=== PATIENT | male | born 1960 | race Caucasian/White ===

== ENCOUNTER 2019-04-24 01:39 | Emergency (ER) | payer MEDICAID, OTHER ==
[~2019-04-24] VITALS: Ht 160 cm; Wt 75.0 kg
[2019-04-24] MEDS ORDERED: HYDROcodone/acetaminophen 5mg/325mg tablet PO ONE (02:25)
[2019-04-24] MEDS ORDERED: ondansetron 4mg rapidly disintigrating tab PO ONE (02:25)
[2019-04-24 02:46] LABS: BASOPHILS # (AUTO) 0.1 X10'3 (0-0.2); BASOPHILS % (AUTO) 0.8 % (0-1); EOSINOPHILS # (AUTO) 1.6 X10'3 (0-0.9); EOSINOPHILS % (AUTO) 14.3 % (0-6); LYMPHOCYTES # (AUTO) 1.5 X10'3 (1.1-4.8); LYMPHOCYTES % (AUTO) 13.4 % (21-51); MEAN CORPUSCULAR HEMOGLOBIN 32.8 PG (27.0-31.0); MEAN CORPUSCULAR HGB CONC 34.2 g/dL (33.0-36.5); MEAN CORPUSCULAR VOLUME 96.1 FL (78-98); MEAN PLATELET VOLUME 7.2 FL (7.4-10.4); MONOCYTES # (AUTO) 1.5 X10'3 (0-0.9); MONOCYTES % (AUTO) 12.8 % (2-12); NEUTROPHILS # (AUTO) 6.6 X10'3 (1.8-7.7); NEUTROPHILS % (AUTO) 58.7 % (42-75); PLATELET COUNT 366 X10'3 (140-440); RED BLOOD COUNT 4.57 X10'6 (4.70-6.10); RED CELL DISTRIBUTION WIDTH 13.5 % (11.5-14.5); WHITE BLOOD COUNT 11.3 X10'3 (4.5-11.0)
[2019-04-24 03:00] LABS: ALANINE AMINOTRANSFERASE 28 U/L (12-78); ALBUMIN 3.4 G/DL (3.4-5.0); ALBUMIN/GLOBULIN RATIO 0.7 (1.1-1.5); ALKALINE PHOSPHATASE 89 IU/L (46-116); ANION GAP 10 (8-16); ASPARTATE AMINO TRANSFERASE 16 U/L (10-37); BILIRUBIN,TOTAL 0.5 MG/DL (0.1-1.0); BLOOD UREA NITROGEN 15 MG/DL (7-18); BUN/CREATININE RATIO 15.5 (5.4-32.0); CALCIUM 9.2 MG/DL (8.5-10.1); CHLORIDE 103 MMOL/L (99-107); CREATININE 0.97 MG/DL (0.60-1.10); GLUCOSE 119 MG/DL (70-104); LIPASE 78 U/L (73-393); POTASSIUM 3.8 MMOL/L (3.5-5.1); SODIUM 138 MMOL/L (135-145); TOTAL CARBON DIOXIDE 25.2 MMOL/L (24-32); eGFR 79 ML/MIN
--- NOTE | 2019-04-24 03:04 | NUR ---
labs drawn, urine provided, pt just returned from ct. pt is a&ox4 and cooperative. pain is 7 out of 10 to abdomen
--- NOTE | 2019-04-24 03:42 | NUR ---
pt returned from CT, pain level reassesses, states 01/12. CT results pending. vitals stable. pt resting comfortably.
[2019-04-24 03:45] LABS: CLARITY,URINE CLEAR (Clear); COLOR,URINE YELLOW (Yellow); GLUCOSE, URINE NEGATIVE (Neg); KETONES,URINE NEGATIVE (Neg); LEUKOCYTE ESTERASE ,URINE NEGATIVE (Neg); NITRITES, URINE NEGATIVE (Neg); OCCULT BLOOD,URINE LARGE (Neg); PROTEIN,URINE NEGATIVE (Neg)
[2019-04-24 03:59] LABS: UA COLLECTION TYPE CLN CATCH MIDSTREAM
[2019-04-24 04:03] LABS: BACTERIA,URINE NONE SEEN /HPF (Neg); RBC,URINE 20-50 /HPF (0-2); SQUAMOUS EPITHELIAL CELL,UR FEW /LPF (FEW); WBC,URINE NONE SEEN /HPF (0-4)
[2019-04-24] MEDS ORDERED: ketorolac trometh. 30mg/ml inj. IV ONE (04:25)
[2019-04-24] MEDS ORDERED: ketorolac trometh inj. 60 MG/2 ML VIAL IM ONE (04:55)
--- NOTE | 2019-04-24 05:35 | NUR ---
pt placed on o2 2L nc stats ranging 88-91%. vss. pt just given toradal IM. reports 2/10 pain. friend is at bedside.
[2019-04-24] MEDS ORDERED: IBUP-1985 PO (08:07)
[2019-04-24] MEDS ORDERED: HYDR-3965 PO (08:07)
[2019-04-24 08:21] VITALS: BP 143/93
== END 2019-04-24 08:24 | disposition home or self-care (01) ==
LOC: ER 01:40
DX: N20.1 Calculus of ureter (principal); R10.32 Left lower quadrant pain
CPT/HCPCS: 36415; 74176; 80053; 81001; 83605; 83690; 85025; 85610; 96372; 99284; J1885

== ENCOUNTER 2025-05-04 09:59 | Emergency (ER) | payer MEDICAID ==
[~2025-05-04] VITALS: Ht 160 cm; Wt 59.1 kg
[~2025-05-04 09:59] MED LIST: BICT1TAB PO; CARV-164 PO; CEPH-585 PO; DICL100G59 TOP; EMPA10TA PO; FURO-149 PO; LOSA25TA41 PO
--- NOTE | 2025-05-04 10:10 | ELECTROCARDIOGRAPH REPORT ---
[facility] Test Date: 2025-05-04 Test Time: 10:02:52 Pat Name: NATHANAEL COBB Department: EMERGENCY ROOM Room: Gender: M [employer]: PM : 1960 Requested By: JERRY MCGEE Order Number: [id number] Reading MD: Dr. Ángel Monzon Measurements Intervals [place] Rate: 107 P: 65 UT: 175 QRS: 119 QRSD: 103 T: -25 QT: 348 QTc: 465 Interpretive Statements Sinus tachycardia Atrial premature complex Right axis deviation Probable anteroseptal infarct, old Borderline T abnormalities, inferior leads Electronically Signed On 05-05-2025 10:24:[address] Ángel Monzon Please click the below link to view image of tracing.
[2025-05-04 10:25] LABS: BASOPHILS % (AUTO) 0.5 % (0-1); EOSINOPHILS # (AUTO) 0.1 X10'3 (0-0.9); EOSINOPHILS % (AUTO) 1.4 % (0-6); HEMATOCRIT 48.1 % (42.0-52.0); HEMOGLOBIN 15.8 g/dl (14.0-17.9); LYMPHOCYTES % (AUTO) 23.5 % (21-51); MEAN CORPUSCULAR HEMOGLOBIN 31.5 PG (27.0-31.0); MEAN CORPUSCULAR HGB CONC 32.9 g/dL (33.0-36.5); MEAN CORPUSCULAR VOLUME 95.9 FL (78-98); MEAN PLATELET VOLUME 7.8 FL (7.4-10.4); MONOCYTES # (AUTO) 0.9 X10'3 (0-0.9); MONOCYTES % (AUTO) 10.4 % (2-12); NEUTROPHILS # (AUTO) 5.6 X10'3 (1.8-7.7); NEUTROPHILS % (AUTO) 64.2 % (42-75); PLATELET COUNT 236 X10'3 (140-440); RED BLOOD COUNT 5.01 X10'6 (4.70-6.10); RED CELL DISTRIBUTION WIDTH 18.6 % (11.5-14.5); WHITE BLOOD COUNT 8.7 X10'3 (4.5-11.0)
[2025-05-04] MEDS: magnesium sulf-water 2g/50mL 50 ML IV ONE (10:32)
[2025-05-04] MEDS: normal saline 1000ML IV soln IVB ONE (10:33)
[2025-05-04 10:43] LABS: ALANINE AMINOTRANSFERASE 34 U/L (12-78); ALBUMIN 3.4 G/DL (3.4-5.0); ALBUMIN/GLOBULIN RATIO 0.8 (1.1-1.5); ALKALINE PHOSPHATASE 128 IU/L (46-116); ANION GAP 19 (8-16); ANISOCYTOSIS 2+; ASPARTATE AMINO TRANSFERASE 35 U/L (10-37); BILIRUBIN,TOTAL 2.7 MG/DL (0.1-1.0); BLOOD UREA NITROGEN 50 MG/DL (7-18); BUN/CREATININE RATIO 29.1 (10.0-20.0); CALCIUM 9.1 MG/DL (8.5-10.1); CHLORIDE 101 MMOL/L (99-107); CREATININE 1.72 MG/DL (0.60-1.10); GLUCOSE 172 MG/DL (70-104); MAGNESIUM 2.2 MG/DL (1.5-2.4); PLATELET ESTIMATE NORMAL; SODIUM 136 MMOL/L (135-145); TOTAL CARBON DIOXIDE 16.5 MMOL/L (24-32); TOTAL PROTEIN 7.8 G/DL (6.4-8.2); eCRCL 35 ML/MIN; eGFR 40 ML/MIN
--- NOTE | 2025-05-04 10:46 | Physician Documentation ---
History of Present Illness ~ Chief Complaint: Chest Pain Stated Complaint: SVT Time Seen by MD: 10:01 Primary Medical Doctor: AGAPITO Mode of Arrival: EMS HPI This is a 64-year-old gentleman who was brought in by ambulance for evaluation of chest pain no shortness a breath. He was found to be in supraventricular tachycardia with a rate of 177. In route he received adenosine 6 mg and then 12 mg converting into spontaneous sinus rhythm. His chest pain and shortness a breath have resolved. No particular palliating or aggravating factors, no trigger was elicited with the patient. States that he does not have past history of supraventricular tachycardia, this never happened in the past. A denies drug use and states that he has been clean off meth for two years. Medication Reconciliation Allergies: Coded Allergies: No Known Allergies (Unverified , 04/22/21) Scheduled Bictegrav/Emtricit/Tenofov Ala (Biktarvy 50-200-25 mg Tablet), 1 TAB PO DAILY, (Reported) Carvedilol (Carvedilol), 3.125 MG PO BID Cephalexin*Monohydrate* (Keflex*), 500 MG PO TID Empagliflozin (Jardiance), 10 MG PO DAILY Furosemide (Lasix), 40 MG PO DAILY Losartan Potassium (Losartan Potassium), 25 MG PO DAILY Scheduled PRN Diclofenac Sodium (Diclofenac Sodium), 1 APPLIC TOP for pain, (Reported) Past Medical History Past Medical History: Constipation, Hernia, Kidney Stones Past Surgical History: noncontributory Alcohol Use: Abuse Drug Use: marijuana, methamphetamine Lives with: Other Lives In: Home Review of Systems ROS 10 point review of systems was performed and unless noted above in HPI is negative for acute process/complaint. Physical Exam Vital Signs: Temperature: 98.5, Source: Oral, Heart Rate: 106, Respiratory Rate: 23, BP: 114/84, Pulse Oximetry: 96, Weight: 59.090 Physical Exam GENERAL: Awake, alert, oriented, GCS 15, no apparent distress, non-toxic appearing, answers questions, follows commands appropriately. HEENT: Atraumatic, normocephalic, pupils equal, extraocular muscles intact, sclerae anicteric, mucus membranes moist, oropharynx is clear, no stridor. NECK: supple, full active range of motion, trachea midline, no thyromegaly, no lymphadenopathy, no JVD. CARDIOVASCULAR: regular rate/rhythm, no murmurs/gallops/rubs, Pulses are 2+ in all extremities and symmetric. Capillary refill less than 2 seconds. PULMONARY: Nonlabored, good air movement ,no respiratory distress, speaking in full sentences, clear to auscultation bilaterally, no wheezing, no ronchi, no rales, no accessory muscle use. GASTROINTESTINAL: Soft, non-tender, non-distended, normal active bowel sounds, no organomegaly, no pulsatile masses, no CVA tenderness. NEUROLOGIC: Lucid with normal mental status. Normal facial symmetry. Moves all extremities symmetrically and with purpose. No truncal ataxia. Speech is fluid without evidence of dysarthria or aphasia, no focal deficits appreciated. MUSCULOSKELETAL: There is full range of motion of all extremities. There is no joint pain or joint swelling or joint erythema. There is no muscle pain or tenderness or swelling. EXTREMITIES: warm, well-perfused, no cyanosis, no clubbing, no edema, no acute deformities. Skin: warm, dry, no rashes or lesions, no jaundice, no petechiae orpurpura. No ecchymosis. PSYCHIATRIC: Anxious affect, normal insight, normal concentration. Focused exam: [] Progress Results/Orders Results/Orders Orders - JERRY MCGEE DO Chest,Single View (05/04/25 10:06) Monitor (05/04/25 10:06) Saline Lock (05/04/25 10:06) Hs Troponin I W Calculations (05/04/25 13:06) Completed Orders - JERRY MCGEE DO Electrocardiogram (05/04/25 10:06) Cbc/Diff (05/04/25 10:06) Chest,Single View (05/04/25 10:06) MG (05/04/25 10:06) Normal Saline 1000ml (Sodium Chloride 10 (05/04/25 10:10) CMP (05/04/25 10:06) Hs Troponin I W Calculations (05/04/25 10:06) Hs Troponin I W Calculations (05/04/25 12:06) Magnesium Sulf-Water 2g/50ml (Magnesium (05/04/25 10:10) Medications Received in ER Medications (Trade) Dose Ordered Sig/Jolanta Route PRN Reason Start Time Stop Time Status Last Admin Dose Admin (sodium chloride 1000ml IV soln) 500 ml ONCE ONCE IVB 05/04/25 10:10 05/04/25 11:23 DC 05/04/25 10:33 500 ML Magnesium Sulfate 50 ml @ 100 mls/hr ONCE ONCE IV 05/04/25 10:10 05/04/25 11:23 DC 05/04/25 10:32 100 MLS/HR Vital Signs 05/04/25 05/04/25 05/04/25 05/04/25 10:03 10:13 10:15 11:46 Temp 98.5 98.5 98.5 Pulse 97 106 75 Resp 18 18 23 18 B/P (MAP) 114/85 114/84 (94) 94/69 (77) Pulse Ox 97 96 94 O2 Flow Rate 4.0 05/04/25 05/04/25 13:28 14:36 Temp 98.5 98.5 Pulse 85 82 Resp 18 15 B/P (MAP) 96/67 (77) 90/67 (75) Pulse Ox 97 96 O2 Flow Rate 4.0 4.0 Laboratory Tests Test 05/04/25 10:15 05/04/25 12:38 White Blood Count 8.7 Red Blood Count 5.01 Hemoglobin 15.8 Hematocrit 48.1 Mean Corpuscular Volume 95.9 Mean Corpuscular Hemoglobin 31.5 H Mean Corpuscular Hemoglobin Concent 32.9 L Red Cell Distribution Width 18.6 H Platelet Count 236 Mean Platelet Volume 7.8 Neutrophils (%) (Auto) 64.2 Lymphocytes (%) (Auto) 23.5 Monocytes (%) (Auto) 10.4 Eosinophils (%) (Auto) 1.4 Basophils (%) (Auto) 0.5 Neutrophils # (Auto) 5.6 Lymphocytes # (Auto) 2.0 Monocytes # (Auto) 0.9 Eosinophils # (Auto) 0.1 Basophils # (Auto) 0.0 CBC Comment Platelet Estimate Normal Red Blood Cell Morphology Perf Basophilic Stippling Anisocytosis 2+ Macrocytosis 1+ Sodium Level 136 Potassium Level 4.0 Chloride Level 101 Carbon Dioxide Level 16.5 L Anion Gap 19 H Blood Urea Nitrogen 50 H Creatinine 1.72 H Estimated GFR/1.73 m2 40 BUN/Creatinine Ratio 29.1 H Glucose Level 172 H Calcium Level 9.1 Magnesium Level 2.2 Total Bilirubin 2.7 H Aspartate Amino Transf (AST/SGOT) 35 Alanine Aminotransferase (ALT/SGPT) 34 Alkaline Phosphatase 128 H Troponin I High Sensitivity 33 27 Total Protein 7.8 Albumin 3.4 Globulin 4.4 H Albumin/Globulin Ratio 0.8 L Chemistry Comments Troponin I High Sens Percent Delta 18 Troponin I Hi Sens Absolute Change -6 EKG/XRAY/CT/US/VASC/MRI EKG : Additional Comment EKG was obtained and interpreted by myself showing sinus tachycardic, rate of 107, normal GA interval, narrow QRS, no QT prolongation, right axis, no STEMI. Medical Decision Making Findings Facility Status: ED Holds, RME process The plan was discussed with the patient, who demonstrates clear understanding of the plan and is in agreement with the plan unless otherwise noted in the chart. All questions have been answered, all concerns were addressed unless otherwise documented. I was available throughout their ED stay for frequent reassessment and questions. Differential Diagnoses (considered and possible or likely): [Differential diagnosis considered includes sequelae of arrhythmia such as supraventricular tachycardia with demand ischemia, chest wall pain, pleurisy, pneumonia, pulmonary embolus, GERD, esophagitis, gastritis, anxiety, stress reaction, costochondritis, acute coronary syndrome, aortic dissection, pericarditis, myocarditis, or pneumothorax.] ??Differential Diagnoses (considered and unlikely, not requiring evaluation currently): [Aortic/great vessels dissection was considered but it is unlikely based on absence of ripping, tearing, migratory chest pain, absence of syncope or focal neurologic deficits, physical examination indicating equal and symmetric pulses.] MDM Data Please see HPI for the following: Independent Historians and external Records Review. Historian: [Patient] Independent Historians: ?[EMS, record review] Medication Management: [Reviewed medication list] Social History and determinants: [Reviewed] Please see the body of the note for the following: Any independent interpretations of ECG, imaging studies. All vitals signs/haemodynamics, ordered tests were independently reviewed and interpreted by myself. Nursing triage complaint and vitals reviewed, additional nursing notes were reviewed as available and I agree unless otherwise noted or documented in contradiction in the chart Vital Signs: Independently reviewed Labs: Independently interpreted Imaging: Independently interpreted Old Medical Records: Independently reviewed, see HPI for relevant summary and information Pulse Oximetry: [95% on baseline oxygen] interpreted as [baseline] by me [Vascular Neurologist: [Regular Rate, Regular rhythm, no ectopy, NSR] reviewed and interpreted by me] Additionally notably showing: [Hemodynamically stable. No recurrence of SVT. Hematologic workup was unremarkable. 2- troponins. Chest x-ray is unremarkable.] Tests considered but not ordered include: [Advanced considerably does not appear to be necessary] Social Determinants of Health Impact: Patient was evaluated in [facility], or [facility] [place] to healthcare due to below par ratio of patient to medical providers. [] Comorbid Conditions Impacting Present Evaluation and Care/Treatment: [None reported by the patient] Management Discussions with other Healthcare Providers: [One none] Treatment and Disposition Medication Management (Given or considered): []. See EMR for details Consideration for Hospitalization/Escalation/Deescalation of Care: Admission for observation has been considered, [however the patient is able to tolerate p.o., their symptoms are controlled, they are able to rely on oral medications, and their chief complaint/diagnosis can be managed on outpatient basis.] ?ED Course:?[No clinical deterioration] ?Shared decision making:?[Patient is hemodynamically stable for discharge home with follow with their primary care provider. [ ] Specific and cautious return precautions provided and discussed with full understanding. Any incidental findings were also discussed and follow up recommendations given. [] All questions answered. Patient/family were able to verbalize back return precautions. Patient/family agree to plan. Copies of imaging and laboratory studies were provided.] Code status:?FULL Please see the full Electronic Medical Record for full details of nursing documentation, medications list, other records of complete past medical history and conditions, vital signs, laboratory studies, and any radiologic study interpretations by radiologists. Portions of this note were completed using [employer] dictation software and as a result there may exist minor errors in spelling. I have reviewed elements of past family and social history and agree as included in note. Departure Disposition: 01 HOME / SELF CARE / HOMELESS Impression: Primary Impression: Supraventricular tachycardia Condition: Improved Discharge Instructions: Supraventricular Tachycardia, Adult Referrals: NO PRIMARY CARE PROVIDER (PCP) Education Educated: Patient Educated regarding: diagnosis, treatment, prognosis, need for follow up Signature Scribe Signature: No scribe Attestation: This note accurately reflects clinical decisions, work performed by myself, DO EVERARDO Reich NICHOLAS M DO May 04, 2025 10:46
--- NOTE | 2025-05-04 13:12 | RADIOLOGY REPORT ---
CHEST RADIOGRAPH Indication: cp Technique: Single frontal view of the chest was obtained COMPARISON: DI CHEST,SINGLE VIEW on DOS: 03/27/25, CHEST,SINGLE VIEW on DOS: 04/22/21 FINDINGS: Lines and Tubes: None Lungs: Clear Pleura: No effusion. No pneumothorax. Cardiomediastinal contours: Unremarkable Bones: Unremarkable IMPRESSION: No acute disease.
[2025-05-04 15:56] VITALS: BP 102/76; PULSE 77; RESP 16; TEMP 98; O2SAT 100
== END 2025-05-04 15:57 | disposition home or self-care (01) ==
LOC: ER 10:00
DX: I47.10 Supraventricular tachycardia, unspecified (principal); Z87.440 Personal history of urinary (tract) infections; F12.90 Cannabis use, unspecified, uncomplicated; F15.90 Other stimulant use, unspecified, uncomplicated; F10.90 Alcohol use, unspecified, uncomplicated; Y90.9 Presence of alcohol in blood, level not specified
CPT/HCPCS: 36415; 71045; 80053; 83735; 84484; 85025; 93005; 96365; 99285; J7030; J7040; 85008

== ENCOUNTER 2025-10-06 13:47 | Outpatient (CLI) | payer MEDICARE, MEDICAID ==
--- NOTE | 2025-10-06 15:37 | RADIOLOGY REPORT ---
CLINICAL HISTORY: DIPLOPIA TECHNIQUE: MRI of the brain and orbits was performed with and without gadolinium. 12 ml of clariscan was administered intravenously. COMPARISON: None FINDINGS: There is no abnormal restricted diffusion to suggest acute infarction. There is mild brain volume loss. Few punctate foci of T2 hyperintensity within the white matter both cerebral hemispheres is of doubtful clinical significance. There are 2 old left mid and inferior cerebellar lacunar infarcts. There is no evidence for acute ischemic changes, mass, mass effect, or extra- axial fluid collection. There is no hydrocephalus or midline shift. The cerebral sulci and subarachnoid cisterns are not effaced. The imaged paranasal sinuses are clear. The midline structures, including the corpus callosum, are unremarkable. The intracranial flow voids are maintained. The globes are symmetric with no evidence for intra-ocular mass. The optic nerves are symmetric with no evidence for edema or atrophy. There is no evidence for intraconal or extraconal mass, fluid collection, or inflammatory process. The extraocular muscles are symmetric. There is no abnormal post contrast enhancement. IMPRESSION: No acute MRI abnormality of the brain / orbits . 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
[2025-10-06] MEDS ORDERED: GADOTERATE MEGLUMINE 7.5 MMOL/15 ML VIAL IV ONE (18:24)
== END 2025-10-06 23:59 | disposition home or self-care (01) ==
LOC: MRI 13:47
PROVIDERS: ATTEND Nurse Practitioner Family
DX: I63.81 Other cerebral infarction due to occlusion or stenosis of small artery (principal); H53.2 Diplopia
CPT/HCPCS: 70553; A9575